=== PATIENT | female | born 1985 | race Caucasian/White ===

== ENCOUNTER → 2017-12-26 | Outpatient (CLI) | payer BC ==
[~2017-12-26] MED LIST: DOC Q LACE PO; NIFE30TA83 PO; PRENTAB26 PO
[2017-12-26 12:14] LABS: BASO % 0.3 %; BASO ABS # 0.02 K/uL (0-0.2); EOS % 3.3 %; IG# 0.01 K/uL (0.00-0.02); LYMPH % 33.8 %; LYMPH ABS # 2.07 K/uL (1.2-3.4); MEAN CELL VOLUME 84.6 fL (80-100); MEAN CORPUSCULAR HEMOGLOBIN 29.6 pg (25-34); MONO % 8.2 %; NEUT % 54.2 %; NEUT ABS # 3.32 K/uL (1.4-6.5); PLATELET COUNT 270 K/uL (130-400); RED CELL DISTRIBUTION WIDTH CV 12.1 % (11.5-14.5); RED CELL DISTRIBUTION WIDTH SD 37.5 fL (36.4-46.3); WHITE BLOOD COUNT 6.12 K/uL (4.8-10.8)
[2017-12-26 12:35] LABS: LUTEINIZING HORMONE 10.91 IU/L; PROLACTIN 5.04 ng/mL
[2017-12-26 12:36] LABS: FOLLICLE STIMULAT HORMONE 5.89 IU/L
== END | disposition home or self-care (01) ==
LOC: C.LAB1850 09:58
PROVIDERS: ATTEND Physician Assistant
DX: N73.0 Acute parametritis and pelvic cellulitis (principal); N94.10 Unspecified dyspareunia; N92.6 Irregular menstruation, unspecified